=== PATIENT | female | born 1970 | race Caucasian/White ===

== ENCOUNTER 2017-08-12 10:38 | Emergency (ER) | payer MEDICAID ==
--- NOTE | 2017-08-12 11:15 | EDM.PDOC ---
ED HPI GENERAL MEDICAL PROBLEM - General Chief Complaint: Upper Extremity Injury/Pain Stated Complaint: RIGHT HAND IS SORE AND DISCOLORED Time Seen by Provider: 08/12/17 11:16 Source of Information: Reports: Patient History Limitations: Reports: No Limitations - History of Present Illness INITIAL COMMENTS - FREE TEXT/NARRATIVE: pt was reaching up in the cupboard for a dish and she suddenly devloped tightness in her hand and her ring and middle finger was bent forward. She was unable to straighten them out. She noted that the tips of the fingers looked blue. The color waxed and wanned for several hours. It was about 2 hours before she could completely straighten out the fingers. The color was back to normal by this am. She is describing discomfort in the hand and she is rating it an 8. She also had a headache. She now has swelling of the mp joint of the middle finger. This is very tender. She has pain with movement. Onset: Other (last pm. ) Duration: Hour(s):, Other ( It is some better but still uncomfortable. ) Location: Reports: Upper Extremity, Right Associated Symptoms: Reports: No Other Symptoms Right Hand Pain Score (Numeric/FACES): 8 - Related Data Allergies Allergy/AdvReac Type Severity Reaction Status Date / Time azithromycin AdvReac Nausea Verified 08/12/17 11:09 Home Meds: Home Meds Dicyclomine [Bentyl] 20 mg PO QIDACANDBED 08/12/17 [History] Doxycycline [Doxycycline Hyclate] 100 mg PO DAILY 08/12/17 [History] Oxymetazoline HCl [Vicks Qlearquil] 15 ml NS DAILY 08/12/17 [History] Topiramate 100 mg PO BID 08/12/17 [History] Review of Systems - Review of Systems Review Of Systems: See Below Constitutional: Reports: No Symptoms Eyes: Reports: No Symptoms Ears: Reports: No Symptoms Nose: Reports: No Symptoms Mouth/Throat: Reports: No Symptoms Respiratory: Reports: No Symptoms Cardiovascular: Reports: No Symptoms GI/Abdominal: Reports: No Symptoms Musculoskeletal: Reports: Other (pain in the rt upper extremity at the mp joint of the middle finger. ) ED EXAM, GENERAL - Physical Exam Exam: See Below Free Text/Narrative:: Pt has swelling of the mp joint of the middle finger. This joint is tender, She has pain with movement of the finger. Exam Limited By: No Limitations General Appearance: Alert, Anxious Ears: Normal TMs Nose: Normal Inspection Throat/Mouth: Normal Inspection Head: Atraumatic Neck: Normal Inspection Respiratory/Chest: No Respiratory Distress Cardiovascular: Regular Rate, Rhythm GI/Abdominal: Soft, Non-Tender Extremities: Other ( left hand shows normal color. The 2 fingers were blue last nite. She has swelling of the mp joint of the middle finger and this is tender. She has a fair pulse at the wrist. Us was done of the wrist and hand and she has good perfusion of the area. her wbc is normal. Crp is mildly elevated. Her ddimer is neg. ) Neurological: Alert Course - Vital Signs Last Recorded V/S: Last Vital Signs Temp 35.7 C 08/12/17 10:57 Pulse 70 08/12/17 10:57 Resp 16 08/12/17 10:57 BP 116/79 08/12/17 10:57 Pulse Ox - Orders/Labs/Meds Labs: Laboratory Tests 08/12/17 08/12/17 08/12/17 Range/Units 11:26 11:26 12:08 WBC 5.5 (4.5-11.0) K/uL RBC 5.30 (3.30-5.50) M/uL Hgb 14.7 (12.0-15.0) g/dL Hct 44.1 (36.0-48.0) % MCV 83 (80-98) fL MCH 28 (27-31) pg MCHC 33 (32-36) % Plt Count 199 (150-400) K/uL Neut % (Auto) 60 (36-66) % Lymph % (Auto) 29 (24-44) % [place] % (Auto) 8 H (2-6) % Eos % (Auto) 3 (2-4) % Baso % (Auto) 0 (0-1) % D-Dimer, Quantitative < 100 (0.0-400.0) ng/mL C-Reactive Protein 0.45 H (0.0-0.3) mg/dL Meds: Medications Discontinued Medications Generic Name Dose Route Start Last Admin Trade Name Freq PRN Reason Stop Dose Admin Ketorolac Tromethamine 60 mg 08/12/17 12:12 08/12/17 12:29 Toradol IM 08/12/17 12:13 60 mg ONETIME ONE Administration - Re-Assessments/Exams Free Text/Narrative Re-Assessment/Exam: 08/20/17 22:33 As she was being discharged and we were close to the desk one of her relatives stated remember you were wrestling with your son last nite. Had this history been obtained earlier a regular xray would have been obtained. Departure - Departure Time of Disposition: 13:12 Disposition: Home, Self-Care 01 Condition: Fair Clinical Impression: Inflammation of metatarsophalangeal joint - Discharge Information Instructions: Tendinitis, [id number] Referrals: PCP,None [Primary Care Provider] - Forms: ED Department Discharge Care Plan Goals: soak had in warm water followed by a cool pack, naprozyn 500mg bid, norco 5/ 325 q6h prn for pain, appt with Dr Soto--ortho thursday or thursday. Soak the hand tid.
[2017-08-12] MEDS ORDERED: Ketorolac 60 MG/2 ML SDV IM ONE (12:12)
--- NOTE | 2017-08-12 12:25 | US ---
VL Duplex Upr Ext Art Ltd Rt HISTORY: Swelling. Discoloration. COMPARISON: None FINDINGS: The right upper extremity arterial system demonstrates fairly normal waveforms. No findings to suggest stenosis or occlusion. No abnormality in the region of swelling within the right hand. Impression: No evidence for arterial abnormality.
== END 2017-08-12 13:37 | disposition home or self-care (01) ==
LOC: JP.ED 10:38
DX: M19.041 Primary osteoarthritis, right hand (principal); Z88.1 Allergy status to other antibiotic agents; Z79.899 Other long term (current) drug therapy
CPT/HCPCS: 36415; 85025; 85379; 86140; 93931; 96372; 99284; J1885; 99283

== ENCOUNTER 2022-07-14 13:36 | Emergency (ER) | payer MEDICAID, OTHER ==
[2022-07-14] MEDS ORDERED: Ketorolac 30 MG/ML SDV IM ONE (15:19)
[2022-07-14] MEDS ORDERED: Acetaminophen/HYDROcodone 325-5 MG Tab PO ONE ×2 (15:20→16:00)
== END 2022-07-14 17:33 | disposition home or self-care (01) ==
LOC: JP.ED 13:36
DX: S39.012A Strain of muscle, fascia and tendon of lower back, initial encounter (principal); E78.00 Pure hypercholesterolemia, unspecified; Z88.1 Allergy status to other antibiotic agents; Z79.899 Other long term (current) drug therapy; Z79.82 Long term (current) use of aspirin; Z90.49 Acquired absence of other specified parts of digestive tract; X50.0XXA Overexertion from strenuous movement or load, initial encounter
CPT/HCPCS: 96372; 99283; A9270; J1885